=== PATIENT | female | born 1960 | race African-American/Black ===

== ENCOUNTER → 2017-01-17 | Outpatient (CLI) | payer OTHER ==
[2017-01-17 13:00] LABS: ABSOLUTE NEUTROPHILS 3.5 thou/uL (1.4-8.2); BASOPHILS 0.7 % (0.0-2.0); EOSINOPHILS 1.6 % (0.0-3.0); HEMATOCRIT 42.5 % (37.0-47.0); HEMOGLOBIN 14.3 gm/dL (12.0-15.0); LYMPHOCYTES 47.7 % (24.0-44.0); MCH 31.7 pg (26.0-34.0); MCHC 33.7 g/dL (28.0-37.0); MCV 94.2 fL (80.0-100.0); MONOCYTES 6.1 % (1.0-8.0); PLATELET COUNT 268 thou/uL (150-400); POLYS 43.9 % (36.0-66.0); RBC 4.52 mil/uL (4.20-5.00); RDW 13.6 % (10.5-14.5); WBC 7.9 thou/uL (4.0-11.0)
[2017-01-17 13:01] LABS: MANUAL DIFF NO
[2017-01-17 13:06] LABS: URINE BILIRUBIN NEGATIVE (Negative); URINE BLOOD NEGATIVE (Negative); URINE COLOR YELLOW; URINE GLUCOSE-RANDOM* NEGATIVE (Negative); URINE KETONES NEGATIVE (Negative); URINE LEUKOCYTES-REFLEX 1+ (Negative); URINE PROTEIN (DIPSTICK) NEGATIVE (Negative); URINE UROBILINOGEN 0.2 E.U./dl (0.2-1.0)
[2017-01-17 13:17] LABS: CASTS None Seen /LPF (None Seen); CRYSTALS None Seen /LPF (None Seen); SQUAMOUS 0-3 Few /LPF (0-3); URINE RBC None Seen /HPF (0-2); URINE WBC-REFLEX 0-5 Rare /HPF (0-5)
[2017-01-17 13:18] LABS: ALKALINE PHOSPHATASE 93 U/L (46-116); ANION GAP 5 mmol/L (7-16); BUN 14 mg/dL (7-18); CALCIUM 9.1 mg/dL (8.5-10.1); CHLORIDE 104 mmol/L (98-107); CHOLESTEROL 239 mg/dL (<200); CO2 32 mmol/L (21-32); GLUCOSE 89 mg/dL (74-106); HDL CHOLESTEROL 95 mg/dL (>40); LDL CHOLESTEROL 133 mg/dL (<100); POTASSIUM 4.6 mmol/L (3.5-5.1); SGOT 23 U/L (15-37); SGPT 24 U/L (30-65); SODIUM 141 mmol/L (136-145); TC:HDL 2.5 Ratio (Not establshd); TOTAL BILIRUBIN 0.6 mg/dL (<0.1-1.0); TRIGLYCERIDE 59 mg/dL (<150); VLDL 12 mg/dL (<40)
== END ==
LOC: LAB 12:11
PROVIDERS: Family Medicine
DX: Z00.00 Encounter for general adult medical examination without abnormal findings (principal)

== ENCOUNTER → 2017-11-13 | Outpatient (CLI) | payer OTHER ==
--- NOTE | ~2017-11-13 | 2DMMODE ---
[facility] [address] [place] [address] 2 D/M-MODE ECHOCARDIOGRAM Name: ASHLEIGH ROMEO Room #: REG [facility]#: [id number] Admission: 11/13/17 Attend Phys: Fadi Carty, Discharge: Date of : 58 Date of Service: 11/13/17 1006 Report #: [id number] THIS REPORT FOR: //name// APPROVED REPORT Study performed: 11/13/2017 09:09:54 EXAM: Comprehensive 2D, Doppler, and color-flow Echocardiogram Patient Location: Out-Patient Room #: Echo lab 2 Status: routine BSA: 1.65 HR: 67 bpm BP: 164/86 mmHg Other Information Study Quality: Good Indications Hypertension/HDD 2D Dimensions RVDd: 33.23 mm LVEF(%): 77.94 (>50%) IVSd: 13.54 (7-11mm) LVOT Diam: 20.64 (18-24mm) LVDd: 39.44 mm PWd: 13.79 (7-11mm) Ascending Ao: 27.62 (22-36mm) LVDs: 21.30 (25-40mm) Aortic Root: 29.06 mm IVC: 16.00 mm Orellana's LVEF: 77.94 % Volumes Left Atrial Volume (Systole) Single Plane 4CH: 47.70 mL Single Plane 2CH: 42.51 mL LA ESV Index: 30.00 mL/m2 Aortic Valve AoV Peak Armond.: 1.46 m/s AO Peak Gr.: 8.49 mmHg LVOT Max P.74 mmHg LVOT Max V: 1.09 m/s KATALINA Vmax: 2.50 cm2 Mitral Valve E/A Ratio: 1.1 MV Decel. Time: 176.57 ms MV E Max Armond.: 0.91 m/s [facility] [place] [address] 2 D/M-MODE ECHOCARDIOGRAM Name: ASHLEIGH ROMEO Room #: REG [facility]#: [id number] Admission: 11/13/17 Attend Phys: Fadi Carty, Discharge: Date of : 58 Date of Service: 11/13/17 1006 Report #: [id number] MV A Armond.: 0.82 m/s MV PHT: 51.20 ms IVRT: 87.66 ms Pulmonary Valve PV Peak Armond.: 0.89 m/s PV Peak Gr.: 3.19 mmHg Pulmonary Vein P Vein S: 0.52 m/s P Vein A: 0.31 m/s P Vein D: 0.42 m/s P Vein A Dur.: 120.0 msec P Vein S/D Ratio: 1.24 Tricuspid Valve TR Peak Armnod.: 2.51 m/s TR Peak Gr.: 25.26 mmHg PA Pressure: 30.00 mmHg Left Ventricle The left ventricle is normal size. Mild concentric left ventricular hypertrophy. The left ventricular systolic function is normal. The left ventricular ejection fraction is within the normal range. LVEF is 60-65%. The left ventricular diastolic function is normal. Right Ventricle The right ventricle is normal size. The right ventricular systolic function is normal. Atria The left atrium size is normal. The right atrium size is normal. Aortic Valve The aortic valve is normal in structure. No aortic regurgitation is present. There is no aortic valvular stenosis. Mitral Valve The mitral valve is normal in structure. Trace mitral regurgitation. No evidence of mitral valve stenosis. Tricuspid Valve The tricuspid valve is normal in structure. There is trace tricuspid regurgitation. Estimated PAP 30 mmHg. There is no pulmonary hypertension. Pulmonic Valve The pulmonary valve is normal in structure. Trace pulmonic [facility] [address] [place] [address] 2 D/M-MODE ECHOCARDIOGRAM Name: ASHLEIGH ROMEO Room #: REG [facility]#: [id number] Admission: 11/13/17 Attend Phys: Fadi Carty, Discharge: Date of : 58 Date of Service: 11/13/17 1006 Report #: [id number] regurgitation. Great Vessels The aortic root is normal in size. IVC is normal in size and collapses >50% with inspiration. Pericardium There is no pericardial effusion. <Conclusion> The left ventricle is normal size. LVEF is 60-65%. The aortic valve is normal in structure. The mitral valve is normal in structure. Trace mitral regurgitation. The tricuspid valve is normal in structure. There is trace tricuspid regurgitation. Estimated PAP 30 mmHg. There is no pulmonary hypertension. The pulmonary valve is normal in structure. Trace pulmonic regurgitation. There is no pericardial effusion. <ELECTRONICALLY SIGNED> By: Mariano Grant MD 11/13/17 1006 1006 1006 Mariano Grant MD /INF
== END ==
LOC: CV 07:06
DX: I10 Essential (primary) hypertension (principal)

== ENCOUNTER → 2018-05-14 | Outpatient (CLI) | payer OTHER | LOC: RAD 07:23 | DX: Z12.31 Encounter for screening mammogram for malignant neoplasm of breast (principal) ==

== ENCOUNTER → 2019-05-14 | Outpatient (CLI) | payer OTHER | LOC: RAD 09:56 | DX: Z12.31 Encounter for screening mammogram for malignant neoplasm of breast (principal) ==

== ENCOUNTER → 2019-09-11 | Outpatient (CLI) | payer OTHER | LOC: CAT 07:49 | DX: Z13.6 Encounter for screening for cardiovascular disorders (principal); I25.10 Atherosclerotic heart disease of native coronary artery without angina pectoris; E78.00 Pure hypercholesterolemia, unspecified ==

== ENCOUNTER → 2020-05-11 | Outpatient (CLI) | payer OTHER | LOC: RAD 08:18 | PROVIDERS: ATTEND Family Medicine | DX: Z12.31 Encounter for screening mammogram for malignant neoplasm of breast (principal) ==

== ENCOUNTER → 2021-05-12 | Outpatient (CLI) | payer OTHER | LOC: RAD 09:15 | PROVIDERS: ATTEND Family Medicine | DX: Z12.31 Encounter for screening mammogram for malignant neoplasm of breast (principal) ==

== ENCOUNTER → 2021-08-01 | Outpatient (CLI) | payer OTHER | LOC: ULTRA 08:38 | PROVIDERS: ATTEND Nurse Practitioner | DX: R22.2 Localized swelling, mass and lump, trunk (principal) ==